=== PATIENT | male | born 1950 | race Caucasian/White ===

== ENCOUNTER 2020-01-21 09:01 | Emergency (ER) | payer MEDICARE ==
[2020-01-21 09:06] VITALS: Wt 68.2 kg
[2020-01-21 09:30] LABS: CALC OSMOLALITY 284 mosm/kg (275-300); CALCIUM 9.3 mg/dL (8.5-10.1); CARBON DIOXIDE 25.2 mmol/L (21.0-32.0); CHLORIDE - SERUM 103 mmol/L (98-107); CREATININE - SERUM 1.2 mg/dL (0.6-1.3); GLUCOSE 218 mg/dL (74-106); SODIUM 139 mmol/L (136-145); UREA NITROGEN 12 mg/dL (7-18); eGFR NON AFRICAN AMERICAN 64 mL/min (90-120)
[2020-01-21 09:38] LABS: BASOPHILS 0.5 % (0-2); EOSINOPHILS 0.5 % (0-7); HEMOGLOBIN 12.1 g/dL (13.5-17.5); IMMATURE GRANULOCYTES 0.1 % (0-5); LYMPHOCYTES 15.2 % (15-50); MCH 23.1 pg (26.0-34.0); MCHC 31.8 g/dL (31.0-37.0); MCV 72.5 fL (80.0-100.0); MEAN PLATELET VOLUME 9.2 fL (7.4-10.4); MONOCYTES 4.3 % (2-11); NEUTROPHILS 79.4 % (40-80); PLATELET COUNT 366 10x3/uL (130-400); RBC 5.24 10x6/uL (4.20-6.10); WBC 8.4 10x3/uL (4.8-10.8)
[2020-01-21 09:39] LABS: ALKALINE PHOSPHATASE 76 U/L (30-120); ALT (SGPT) 24 U/L (10-68); AMYLASE - SERUM 65 U/L (25-115); BILIRUBIN - TOTAL 0.35 mg/dL (0.2-1.3); LIPASE 187 U/L (73-393); PROTEIN - SERUM 7.8 g/dL (6.4-8.2); TROPONIN-I < 0.017 ng/mL (0.000-0.060)
[2020-01-21 09:55] LABS: BACTERIA MANY /hpf (NEGATIVE); BILIRUBIN NEGATIVE (NEGATIVE); EPITHELIAL CELLS OCC /hpf (0-5); GLUCOSE NEGATIVE (NEGATIVE); KETONE SMALL mg/dL (NEGATIVE); NITRITE NEGATIVE (NEGATIVE); RED CELLS - URINE 0-5 /hpf (0-5); SPECIFIC GRAVITY 1.005 (1.005-1.020); UROBILINOGEN NORMAL (NORMAL); WHITE CELLS - URINE 0-5 /hpf (NEGATIVE)
[2020-01-21] MEDS ORDERED: XANAX0.5 MG PO (10:53)
[2020-01-21] MEDS ORDERED: TRULICITY1.5 MG/0.5 SC (10:56)
[2020-01-21] MEDS ORDERED: ZOFRAN ODT4 MG/UDTAB PO (12:50)
[2020-01-21] MEDS ORDERED: CARAFATE1 G/10 ML PO (12:50)
[2020-01-21 12:56] VITALS: BP 156/87
[2020-01-22 13:40] VITALS: Wt 68.2 kg
== END 2020-01-21 13:00 | disposition home or self-care (01) ==
LOC: D.ER 09:01
PROVIDERS: Family Medicine
DX: R11.10 Vomiting, unspecified (principal); K59.00 Constipation, unspecified; E11.9 Type 2 diabetes mellitus without complications; Z79.84 Long term (current) use of oral hypoglycemic drugs; R10.9 Unspecified abdominal pain

== ENCOUNTER 2020-01-21 15:00 | Inpatient (IN) | payer MEDICARE ==
[~2020-01-21] VITALS: Ht 172.7 cm; Wt 69.7 kg
[~2020-01-21 15:00] MED LIST: CARAFATE1 G/10 ML PO; TRULICITY1.5 MG/0.5 SC; XANAX0.5 MG PO; ZOFRAN ODT4 MG/UDTAB PO
[2020-01-21 15:33] LABS: BASOPHILS 0.2 % (0-2); EOSINOPHILS 0.3 % (0-7); HEMATOCRIT 37.3 % (42.0-54.0); HEMOGLOBIN 11.8 g/dL (13.5-17.5); IMMATURE GRANULOCYTES 0.3 % (0-5); MCH 22.9 pg (26.0-34.0); MCHC 31.6 g/dL (31.0-37.0); MCV 72.4 fL (80.0-100.0); MONOCYTES 8.8 % (2-11); NEUTROPHILS 76.4 % (40-80); PLATELET COUNT 377 10x3/uL (130-400); RBC 5.15 10x6/uL (4.20-6.10)
[2020-01-21 15:43] LABS: WBC 15.5 10x3/uL (4.8-10.8)
[2020-01-21 15:45] LABS: CALC OSMOLALITY 276 mosm/kg (275-300); CALCIUM 8.6 mg/dL (8.5-10.1); CARBON DIOXIDE 25.6 mmol/L (21.0-32.0); CHLORIDE - SERUM 104 mmol/L (98-107); GLUCOSE 117 mg/dL (74-106); SODIUM 138 mmol/L (136-145); UREA NITROGEN 12 mg/dL (7-18); eGFR NON AFRICAN AMERICAN 79 mL/min (90-120)
[2020-01-21 15:51] LABS: ALBUMIN 3.7 g/dL (3.4-5.0); ALKALINE PHOSPHATASE 69 U/L (30-120); ALT (SGPT) 24 U/L (10-68); AMYLASE - SERUM 61 U/L (25-115); BILIRUBIN - TOTAL 0.33 mg/dL (0.2-1.3); MAGNESIUM - SERUM 1.9 mg/dL (1.8-2.4); PROTEIN - SERUM 7.4 g/dL (6.4-8.2)
[2020-01-21 16:53] VITALS: BP 145/84
[2020-01-21 18:24] VITALS: BP 168/84; BMI 22.8
[2020-01-21 20:00] VITALS: BP 151/82
--- NOTE | 2020-01-21 23:21 | NUR ---
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
--- NOTE | 2020-01-22 03:49 | NUR ---
I have reviewed this patient and I concur with the Shift Assessment completed by the Licensed Practical Nurse today this shift.
[2020-01-22 04:00] VITALS: BP 169/89
[2020-01-22 05:23] LABS: BASOPHILS 0.3 % (0-2); EOSINOPHILS 1.9 % (0-7); HEMATOCRIT 35.8 % (42.0-54.0); HEMOGLOBIN 11.2 g/dL (13.5-17.5); IMMATURE GRANULOCYTES 0.1 % (0-5); LYMPHOCYTES 29.8 % (15-50); MCH 22.8 pg (26.0-34.0); MCHC 31.3 g/dL (31.0-37.0); MCV 72.9 fL (80.0-100.0); MEAN PLATELET VOLUME 9.7 fL (7.4-10.4); MONOCYTES 8.6 % (2-11); NEUTROPHILS 59.3 % (40-80); PLATELET COUNT 385 10x3/uL (130-400); RBC 4.91 10x6/uL (4.20-6.10); RDW 18.1 % (11.5-14.5)
[2020-01-22 05:31] LABS: WBC 8.6 10x3/uL (4.8-10.8)
[2020-01-22 05:50] LABS: ALBUMIN 3.5 g/dL (3.4-5.0); ALKALINE PHOSPHATASE 61 U/L (30-120); ALT (SGPT) 22 U/L (10-68); AMYLASE - SERUM 55 U/L (25-115); BILIRUBIN - TOTAL 0.38 mg/dL (0.2-1.3); C-REACTIVE PROTEIN 0.3 mg/dL (0.0-0.9); CALC OSMOLALITY 272 mosm/kg (275-300); CALCIUM 8.2 mg/dL (8.5-10.1); CARBON DIOXIDE 26.4 mmol/L (21.0-32.0); CHLORIDE - SERUM 103 mmol/L (98-107); GLUCOSE 106 mg/dL (74-106); POTASSIUM - SERUM 3.7 mmol/L (3.5-5.1); PROTEIN - SERUM 6.8 g/dL (6.4-8.2); SODIUM 137 mmol/L (136-145); UREA NITROGEN 11 mg/dL (7-18); eGFR NON AFRICAN AMERICAN 79 mL/min (90-120)
[2020-01-22 05:54] LABS: LIPASE 111 U/L (73-393)
--- NOTE | 2020-01-22 07:35 | NUR ---
PT RESTING IN BED WITH LEGS FOLDED UP ONTO STOMACH. RESTLESS WITH ANXIETY. PT REPORTS PAIN 10/10 AT THIS TIME. BECOMES EASILY AGITATED WITH OTHERS, THEN APOLOGIZES FOR ACTIONS AND THINGS SAID. IV TO RIGHT FOREARM WITH NS @ 75 ML/HR INFUSING VIA PUMP. SITE WITHOUT REDNESS OR EDEMA. NO FURTHER NEEDS VOICED AT THIS TIME. CL WITHIN REACH. ENCOURAGED TO CALL WITH NEEDS. CONTINUE POC
[2020-01-22 09:10] VITALS: BP 129/99
--- NOTE | 2020-01-22 10:11 | NUR ---
URINE OBTAINED AND TAKEN TO LAB PER MD ORDERS
[2020-01-22 10:41] LABS: UDS - AMPHET NEGATIVE QUAL (NEGATIVE); UDS - BARB NEGATIVE QUAL (NEGATIVE); UDS - BENZO POSITIVE QUAL (NEGATIVE); UDS - COCAINE NEGATIVE QUAL (NEGATIVE); UDS - OPIATE POSITIVE QUAL (NEGATIVE); UDS - PCP NEGATIVE QUAL (NEGATIVE); UDS - THC POSITIVE QUAL (NEGATIVE)
[2020-01-22 11:30] LABS: BILIRUBIN NEGATIVE (NEGATIVE); GLUCOSE NEGATIVE (NEGATIVE); KETONE NEGATIVE (NEGATIVE); NITRITE POSITIVE (NEGATIVE); UROBILINOGEN NORMAL (NORMAL)
[2020-01-22 11:31] LABS: BACTERIA MANY /hpf (NEGATIVE); EPITHELIAL CELLS OCC /hpf (0-5); RED CELLS - URINE OCC /hpf (0-5)
[2020-01-22 12:40] VITALS: BP 175/90
[2020-01-22 13:40] VITALS: Ht 172.7 cm; Wt 69.7 kg
--- NOTE | 2020-01-22 18:09 | NUR ---
PT MORE PLEASANT, REPORTS PAIN RELIEF WITH ADMINISTREATION OF PAIN MEDICATIONS. HE IS LAUGHING AND TALKING WITH STAFF, NO ANXIETY/AGITATION EXHIBITED AT THIS TIME. HE VOICES THAT HE IS FEELING BETTER AFTER SPEAKING WITH MD REGARDING DX AND TREATMENT OPTIONS. DENIES FURTHER NEEDS AT THIS TIME. CL WITHIN REACH. ENCOURAGED TO CALL WITH NEEDS.
--- NOTE | 2020-01-22 18:17 | NUR ---
PT RESTING QUIETLY IN BED. NO ACUTE DISTRESS NOTED. DENIES FURTHER NEEDS AT THIS TIME. CL WITHIN REACH. ENCOURAGED TO CALL WITH NEEDS.
[2020-01-22 20:00] VITALS: BP 166/94
[2020-01-23] VITALS: BP 170/85
[2020-01-23 04:00] VITALS: BP 143/73
[2020-01-23 06:59] LABS: ANION GAP 11.8 mmol/L (8-16); CALCIUM 8.7 mg/dL (8.5-10.1); CARBON DIOXIDE 27.7 mmol/L (21.0-32.0); CREATININE - SERUM 1.1 mg/dL (0.6-1.3); POTASSIUM - SERUM 3.5 mmol/L (3.5-5.1)
[2020-01-23 07:04] LABS: BASOPHILS 0.5 % (0-2); EOSINOPHILS 1.4 % (0-7); HEMATOCRIT 38.2 % (42.0-54.0); HEMOGLOBIN 11.8 g/dL (13.5-17.5); IMMATURE GRANULOCYTES 0.1 % (0-5); LYMPHOCYTES 33.2 % (15-50); MCH 22.3 pg (26.0-34.0); MCHC 30.9 g/dL (31.0-37.0); MCV 72.2 fL (80.0-100.0); MEAN PLATELET VOLUME 9.4 fL (7.4-10.4); MONOCYTES 9.4 % (2-11); NEUTROPHILS 55.4 % (40-80); PLATELET COUNT 390 10x3/uL (130-400); RBC 5.29 10x6/uL (4.20-6.10); RDW 17.8 % (11.5-14.5); WBC 8.4 10x3/uL (4.8-10.8)
--- NOTE | 2020-01-23 07:28 | NUR ---
I have reviewed this patient and I concur with the Shift Assessment completed by the Licensed Practical Nurse today this shift.
--- NOTE | 2020-01-23 08:00 | NUR ---
TOLD PATIENT HIS POTASSIUM WAS 3.5. WHICH IS GOOD ENOUGH BUT I CAN STILL TREAT WITH THE ELECTROLYTE PROTOCOL. PATIENT VOICED UNDERSTANDING. CL IN REACH. WCTM
--- NOTE | 2020-01-23 08:15 | NUR ---
PATIENT ON SITE NURSE LIGHT QUESTIONING THAT DO THE "DOCTORS REALLY WANT ME TO TAKE THAT?" I ANSWERED WELL IT WOULD BE UP TO HIM. I EXPLAINED TO HIM WHAT POTASSIUM DOES FOR HIS BODY AND THAT I LIKE TO TREAT BEFORE IT GETS WORSE. THAT I COULD PUT IT IN LIQUID FORM SINCE HE STATED THAT HE DIDN'T WANT TO TAKE ANY PILLS. PATIENT STATED THAT WOULD BE FINE. I ASKED WHAT KIND OF JUICE HE LIKED SO I COULD MIX IT. HE ANSWERED APPLEJUICE. CL IN REACH. QUESTIONS ANSWERED. WCTM
--- NOTE | 2020-01-23 09:20 | NUR ---
PATIENT SENIOR SECURITY ANALYST LIGHT ASKING IF IT WAS TIME FOR HIS REGLAN. I STATED I HAVE YOUR MORNING MEDS IN MY POCKET AND THAT HE WAS NEXT ON MY LIST.
--- NOTE | 2020-01-23 09:27 | NUR ---
MEDS GIVEN PER EMAR. PATIENT STATED THAT HE DIDN'T WANT TO TAKE ANY PILLS. I VOICED UNDERSTANDING WHILE EXPLAINING TO HIM THE CARAFATE WOULD HELP COAT HIS STOMACH. ALSO STATED THAT HE HAS ALREADY VOMITED TODAY. I ASKED IF HE WAS STILL NAUSEOUS AND HE REPLIED YES. I LEFT TO GO GET ZOFRAN TO TREAT PER EMAR. CL IN REACH WCTM.
--- NOTE | 2020-01-23 09:55 | NUR ---
ASKED PATIENT IF NAUSEA WAS BETTER. HE STATED IT WAS. ANSWERED CALL LIGHT. STATED THAT HE PRESSED IT ON ACCIDENT. CL IN REACH. TM
[2020-01-23 11:05] VITALS: BP 161/97
--- NOTE | 2020-01-23 12:54 | NUR ---
Nutrition follow-up: Pts diet advanced to full liquids; still some nausea, vomiting Delayed gastric emptying and started on reglan Labs reviewed Wt: 153# RDN following.
[2020-01-23 15:07] VITALS: BP 171/87
[2020-01-23 18:58] VITALS: BP 153/83
[2020-01-23 20:00] VITALS: BP 132/56
--- NOTE | 2020-01-23 20:00 | NUR ---
PATIENT RESTING IN BED WATCHING TV. NO S/S OF ACUTE DISTRESS. PATIENT REQUESTED THAT HE HAVE HIS ATIVAN WITH HIS NIGHTIME MEDICINE. PATIENT HAS A RIGHT FOREARM, NORMAL SALINE @ 125 ML/HR. IV IS PATENT WITHOUT REDNESS, SWELLING, OR TENDERNESS. PATIENT IS UP ADLIB TO THE BATHROOM. PATIENT REPORTS THAT HIS NAUSEA HAS BEEN BETTER TODAY. CALL LIGHT WITHIN REACH. WILL CONTINUE TO MONITOR.
[2020-01-24] VITALS: BP 151/67
--- NOTE | 2020-01-24 03:00 | NUR ---
I have reviewed this patient and I concur with the Shift Assessment completed by the Licensed Practical Nurse today this shift.
[2020-01-24 04:00] VITALS: BP 153/80
[2020-01-24 06:11] LABS: BASOPHILS 0.5 % (0-2); EOSINOPHILS 2.4 % (0-7); HEMATOCRIT 35.9 % (42.0-54.0); HEMOGLOBIN 11.1 g/dL (13.5-17.5); LYMPHOCYTES 32.3 % (15-50); MCH 22.5 pg (26.0-34.0); MCHC 30.9 g/dL (31.0-37.0); MCV 72.7 fL (80.0-100.0); MEAN PLATELET VOLUME 9.6 fL (7.4-10.4); MONOCYTES 12.5 % (2-11); NEUTROPHILS 52.3 % (40-80); PLATELET COUNT 345 10x3/uL (130-400); RBC 4.94 10x6/uL (4.20-6.10); RDW 17.6 % (11.5-14.5); WBC 7.7 10x3/uL (4.8-10.8)
[2020-01-24 06:31] LABS: ALBUMIN 3.3 g/dL (3.4-5.0); ANION GAP 8.5 mmol/L (8-16); BILIRUBIN - TOTAL 0.34 mg/dL (0.2-1.3); CALCIUM 8.2 mg/dL (8.5-10.1); CARBON DIOXIDE 28.7 mmol/L (21.0-32.0); CREATININE - SERUM 1.1 mg/dL (0.6-1.3); POTASSIUM - SERUM 3.2 mmol/L (3.5-5.1); PROTEIN - SERUM 6.5 g/dL (6.4-8.2)
--- NOTE | 2020-01-24 09:38 | NUR ---
REFUSES TO TAKE PO OR IV POTASSIUM UNTIL HE SPEAKS WITH .
[2020-01-24 09:41] VITALS: BP 155/76
--- NOTE | 2020-01-24 10:00 | NUR ---
ASSESSMENT PER FLOW SHEET. PATIENT IS WITHOUT DISTRESS.CALL LIGHT IN REACH
[2020-01-24 13:45] VITALS: BP 155/79
--- NOTE | 2020-01-24 15:57 | NUR ---
DENIES NEEDS. DID AGREE TO TAKE POTASSIUN PER MAR.HE HAS REMAINED WITHOUT NAUSEA OR VOMITING.
[2020-01-24 16:00] VITALS: BP 143/93
[2020-01-24 20:00] VITALS: BP 165/88
--- NOTE | 2020-01-24 20:00 | NUR ---
PATIENT RESTING IN BED WATCHING TV. NO S/S OF ACUTE DISTRESS. NO C/O AT THIS TIME. PATIENT HAS RIGHT FOREARM, NORMAL SALINE @ 125 ML/HR. IV IS PATENT WITHOUT REDNESS, SWELLING, OR TENDERNESS. PATIENT REPORTS THAT HE "KEPT A WHOLE MEAL DOWN WITHOUT EVEN A LITTLE ACID REFLUX." PATIENT STATES THAT HE HAD A WONDERFUL DAY WITH NO N&V. PATIENT UP ADLIB TO THE BATHROOM. CALL LIGHT WITHIN REACH. WILL CONTINUE TO MONITOR.
[2020-01-25] VITALS: BP 176/94
--- NOTE | 2020-01-25 03:53 | NUR ---
I have reviewed this patient and I concur with the Shift Assessment completed by the Licensed Practical Nurse today this shift.
[2020-01-25 04:00] VITALS: BP 130/71
[2020-01-25 05:26] LABS: BASOPHILS 0.7 % (0-2); EOSINOPHILS 11.3 % (0-7); HEMATOCRIT 38.5 % (42.0-54.0); HEMOGLOBIN 12.1 g/dL (13.5-17.5); IMMATURE GRANULOCYTES 2.6 % (0-5); LYMPHOCYTES 35.7 % (15-50); MCHC 31.4 g/dL (31.0-37.0); MCV 73.3 fL (80.0-100.0); MEAN PLATELET VOLUME 9.3 fL (7.4-10.4); NEUTROPHILS 39.7 % (40-80); PLATELET COUNT 374 10x3/uL (130-400); RBC 5.25 10x6/uL (4.20-6.10); RDW 17.7 % (11.5-14.5)
[2020-01-25 05:41] LABS: WBC 9.8 10x3/uL (4.8-10.8)
[2020-01-25 05:53] LABS: % SATURATION 17 % (15-55); IRON 65 ug/dl (35-150); TOTAL IRON BIND CAPACITY 362 ug/dl (260-445); UNSAT IRON BIND CAPACITY 297 ug/dl (150-375)
[2020-01-25 06:12] LABS: ALBUMIN 3.8 g/dL (3.4-5.0); ANION GAP 10.1 mmol/L (8-16); BILIRUBIN - TOTAL 0.39 mg/dL (0.2-1.3); CALCIUM 8.6 mg/dL (8.5-10.1); CARBON DIOXIDE 29.5 mmol/L (21.0-32.0); CREATININE - SERUM 1.1 mg/dL (0.6-1.3); POTASSIUM - SERUM 3.6 mmol/L (3.5-5.1); PROTEIN - SERUM 7.4 g/dL (6.4-8.2)
--- NOTE | 2020-01-25 08:00 | NUR ---
ASSESSMENT PER FLOW SHEET. PATIENT IS WITHOUT DISTRESS.CALL LIGHT IN REACH. MONITOR FOR NEEDS
[2020-01-25 08:45] VITALS: BP 168/80
[2020-01-25] MEDS ORDERED: REGLAN10 MG PO (10:42)
[2020-01-25] MEDS ORDERED: LINZESS145 MCG PO (10:42)
[2020-01-25] MEDS ORDERED: NEURONTIN 300300 MG PO (10:42)
[2020-01-25] MEDS ORDERED: LEVAQUIN750 MG PO (11:05)
--- NOTE | 2020-01-25 12:38 | NUR ---
DISCHARGE INSTRUCTIONS,STATES UNDERSTANDING. IV DCD WITH CATH TIP INTACT. LEFT UNIT VIA WHEELCHAIR
--- NOTE | 2020-01-25 18:22 | MORECARE ---
CASE MANAGEMENT DISCHARGE SUMMARY PATIENT: NATHAN JAMESON UNIT: [id number] ADM DATE: 01/22/20 AGE: 69 : 50 SEX: M ROOM/BED: D.2205 AUTHOR: DANILO,DOC PHYSICIAN: REFERRING PHYSICIAN: JULY RESENDEZ MD DATE OF SERVICE: 01/25/20 Discharge Plan Patient Name: NATHAN JAMESON Facility: [facility]:[place] : 1950 Planned Disposition: Home Anticipated Discharge Date: Discharge Date: 01/25/2020 Expected LOS: Initial Reviewer: [email or web address] Initial Review Date: 01/25/2020 Generated: 01/25/20 7:22 pm Comments DCP- Discharge Planning Updated by [email or web address]: Letitia Ho on 01/25/20 5:[address] Patient Name: NATHAN JAMESON Admission Status: ER Accout number: [id number] Admission Date: 01-22-2020 : 1950 Admission Diagnosis:GASTROPARESIS Attending: MAL, Current LOS: 3 Anticipated DC Date: Planned Disposition: Home Primary Insurance: MEDICARE A & B Discharge Planning Comments: CM met with patient to complete initial dc planning assessment. CM educated patient on the CM role and verbal consent given by patient to complete assessment. Patient lives at home alone. Patient is independent. At discharge patient plans to return home and feels this is a safe discharge. CM discussed availability of home health, rehab services, and medical equipment. Patient will have family to transport home. Patient denied known discharge needs at this time. CM will continue to follow and will assist as needed with dc plans/needs. Geophysical Computer: Letitia Ho DCPIA - Discharge Planning Initial Assessment Updated by [email or web address]: Letitia Ho on 01/25/20 6:18 pm * Is the patient Alert and Oriented? Yes * How many steps to enter\exit or inside your home? 2-3 * PCP ?MAL * Pharmacy [facility] * Preadmission Environment Home Alone * ADLs Independent * Equipment None * List name and contact numbers for known caregivers / representatives who currently or will assist patient after discharge: [facility] - [phone] VARUN PERALES [facility] - [phone] * Verbal permission to speak to the caregivers and representatives has been obtained from the patient. Yes * Community resources currently utilized None * Additional services required to return to the preadmission environment? No * Can the patient safely return to the preadmission environment? Yes * Has this patient been hospitalized within the prior 30 days at any hospital? No Patient Name: NATHAN JAMESON Page [phone] at 1822 All edits/amendments must be made on the electronic document DICTATION DATE: 01/25/201821 FLOOR PERSON: IAN 01/25/201821 RPT#: [id number] DC DATE:01/25/20 STATUS: DIS IN [facility] [address] [place] [address] END OF REPORT
== END 2020-01-25 12:39 | disposition home or self-care (01) | DRG 392 ==
LOC: D.ER 15:00 → OBSVTIME 16:27 → D.MS 16:27
PROVIDERS: Family Medicine; ADMIT Family Medicine; ATTEND Family Medicine
DX: K52.9 Noninfective gastroenteritis and colitis, unspecified (principal); K31.84 Gastroparesis; E86.0 Dehydration; R11.2 Nausea with vomiting, unspecified; D72.829 Elevated white blood cell count, unspecified; K44.9 Diaphragmatic hernia without obstruction or gangrene; E11.65 Type 2 diabetes mellitus with hyperglycemia

== ENCOUNTER 2020-02-08 03:29 | Inpatient (IN) | payer MEDICARE ==
[~2020-02-08] VITALS: Ht 172.7 cm; Wt 68.2 kg
[~2020-02-08 03:29] MED LIST changes: +LEVAQUIN750 MG PO; +LINZESS145 MCG PO; +NEURONTIN 300300 MG PO; +REGLAN10 MG PO
[2020-02-08 03:57] LABS: BASOPHILS 0.5 % (0-2); EOSINOPHILS 0.5 % (0-7); HEMATOCRIT 36.7 % (42.0-54.0); HEMOGLOBIN 11.9 g/dL (13.5-17.5); IMMATURE GRANULOCYTES 0.3 % (0-5); LYMPHOCYTES 19.7 % (15-50); MCH 23.2 pg (26.0-34.0); MCHC 32.4 g/dL (31.0-37.0); MCV 71.7 fL (80.0-100.0); MEAN PLATELET VOLUME 8.9 fL (7.4-10.4); MONOCYTES 6.7 % (2-11); NEUTROPHILS 72.3 % (40-80); RBC 5.12 10x6/uL (4.20-6.10); RDW 17.6 % (11.5-14.5); WBC 10.8 10x3/uL (4.8-10.8)
[2020-02-08 03:58] LABS: PLATELET COUNT 469 10x3/uL (130-400)
[2020-02-08 04:01] LABS: ANION GAP 14.2 mmol/L (8-16); CALCIUM 8.9 mg/dL (8.5-10.1); CARBON DIOXIDE 24.8 mmol/L (21.0-32.0); CREATININE - SERUM 1.3 mg/dL (0.6-1.3)
[2020-02-08 04:07] LABS: ALBUMIN 4.1 g/dL (3.4-5.0); BILIRUBIN - TOTAL 0.49 mg/dL (0.2-1.3); PROTEIN - SERUM 7.7 g/dL (6.4-8.2)
[2020-02-08 04:20] LABS: BILIRUBIN NEGATIVE (NEGATIVE); GLUCOSE NEGATIVE (NEGATIVE); KETONE MODERATE mg/dL (NEGATIVE); NITRITE NEGATIVE (NEGATIVE); SPECIFIC GRAVITY 1.015 (1.005-1.020); UROBILINOGEN NORMAL (NORMAL)
[2020-02-08 04:30] VITALS: BP 159/85
--- NOTE | 2020-02-08 04:45 | NUR ---
PT HOWLING, STANDING AT END OF BED YELLING AT NURSE. STATES THAT HE IS IN PAIN STILL. EDP NOTIFIED, SEE EMAR.
[2020-02-08 05:00] VITALS: BP 153/75
[2020-02-08 08:51] VITALS: BP 124/61
[2020-02-08 10:45] VITALS: Ht 172.7 cm; Wt 68.2 kg
--- NOTE | 2020-02-08 10:45 | NUR ---
FROM THE ER THIS MORNING. HE IS C/O ABD PAIN. THE CALL LIGHT IS WITHIN REACH.
[2020-02-08 14:02] VITALS: BP 154/82
[2020-02-08 17:09] VITALS: BP 147/64
[2020-02-08 20:00] VITALS: BP 134/67
[2020-02-09 04:00] VITALS: BP 123/64
[2020-02-09 05:37] LABS: HEMATOCRIT 32.9 % (42.0-54.0); HEMOGLOBIN 10.3 g/dL (13.5-17.5); LYMPHOCYTES 41.9 % (15-50); MCHC 31.3 g/dL (31.0-37.0); MCV 73.6 fL (80.0-100.0); MEAN PLATELET VOLUME 8.3 fL (7.4-10.4); NEUTROPHILS 48.2 % (40-80); PLATELET COUNT 456 10x3/uL (130-400); RBC 4.47 10x6/uL (4.20-6.10); RDW 17.7 % (11.5-14.5); WBC 7.9 10x3/uL (4.8-10.8)
[2020-02-09 06:03] LABS: ALKALINE PHOSPHATASE 66 U/L (30-120); BILIRUBIN - TOTAL 0.32 mg/dL (0.2-1.3); CALCIUM 7.5 mg/dL (8.5-10.1); CARBON DIOXIDE 26.5 mmol/L (21.0-32.0); CHLORIDE - SERUM 104 mmol/L (98-107); POTASSIUM - SERUM 3.7 mmol/L (3.5-5.1); PROTEIN - SERUM 5.9 g/dL (6.4-8.2); SODIUM 138 mmol/L (136-145); UREA NITROGEN 15 mg/dL (7-18); eGFR NON AFRICAN AMERICAN 79 mL/min (90-120)
[2020-02-09 06:04] LABS: ALT (SGPT) 14 U/L (10-68); CALC OSMOLALITY 276 mosm/kg (275-300); GLUCOSE 93 mg/dL (74-106)
--- NOTE | 2020-02-09 08:29 | NUR ---
PT RESTING IN BED WITH EYES CLOSED, EASILY AROUSED TO SPEECH. IV LOCATED TO LEFT AC RUNNING NS @ 100, ZOPHRAN @ 4.7. NO S/S OF DISTRESS AT THIS TIME, DENIES NEEDS, WILL CONT TO MONITOR.
[2020-02-09 08:59] VITALS: BP 109/57
--- NOTE | 2020-02-09 11:58 | NUR ---
BS 193, REFUSED INSULIN STATES HE WOULD LIKE TO TALK TO ELADIO MORALES, NOTIFIED HER.
[2020-02-09 12:52] VITALS: BP 137/69
[2020-02-09] MEDS ORDERED: XANAX0.25 MG PO (13:34)
--- NOTE | 2020-02-09 14:45 | NUR ---
D/C PAPERS SIGNED, WAITING FOR RIDE. NO CONCERNS ABOUT DC.
== END 2020-02-09 15:00 | disposition home or self-care (01) | DRG 74 ==
LOC: D.ER 03:29 → D.MS 05:18
PROVIDERS: Emergency Medicine; ADMIT Family Medicine Adult Medicine; ATTEND Family Medicine Adult Medicine
DX: E11.43 Type 2 diabetes mellitus with diabetic autonomic (poly)neuropathy (principal); E87.1 Hypo-osmolality and hyponatremia; K31.84 Gastroparesis; R10.9 Unspecified abdominal pain; D50.9 Iron deficiency anemia, unspecified; I10 Essential (primary) hypertension; N40.0 Benign prostatic hyperplasia without lower urinary tract symptoms; E11.65 Type 2 diabetes mellitus with hyperglycemia; K57.90 Diverticulosis of intestine, part unspecified, without perforation or abscess without bleeding; K59.00 Constipation, unspecified; F12.90 Cannabis use, unspecified, uncomplicated; K46.9 Unspecified abdominal hernia without obstruction or gangrene; E86.0 Dehydration; R11.2 Nausea with vomiting, unspecified

== ENCOUNTER 2020-03-30 10:24 | Emergency (ER) | payer MEDICARE ==
[~2020-03-30] VITALS: Ht 172.7 cm; Wt 65.9 kg
[~2020-03-30 10:24] MED LIST changes: +XANAX0.25 MG PO
[2020-03-30 10:27] VITALS: Ht 172.7 cm; Wt 65.9 kg
[2020-03-30] MEDS ORDERED: OMEPRAZOLE20 M1 PO ×2 (10:31→13:53)
[2020-03-30 11:25] LABS: BASOPHILS 0.8 % (0-2); EOSINOPHILS 2.5 % (0-7); HEMATOCRIT 35.1 % (42.0-54.0); HEMOGLOBIN 10.9 g/dL (13.5-17.5); IMMATURE GRANULOCYTES 0.2 % (0-5); LYMPHOCYTES 23.3 % (15-50); MCH 22.4 pg (26.0-34.0); MCHC 31.1 g/dL (31.0-37.0); MCV 72.1 fL (80.0-100.0); MEAN PLATELET VOLUME 9.4 fL (7.4-10.4); MONOCYTES 8.7 % (2-11); NEUTROPHILS 64.5 % (40-80); PLATELET COUNT 404 10x3/uL (130-400); RBC 4.87 10x6/uL (4.20-6.10); WBC 8.5 10x3/uL (4.8-10.8)
[2020-03-30 11:38] LABS: ANION GAP 10.2 mmol/L (8-16); CALCIUM 8.6 mg/dL (8.5-10.1); CARBON DIOXIDE 28.2 mmol/L (21.0-32.0); CREATININE - SERUM 1.1 mg/dL (0.6-1.3); POTASSIUM - SERUM 4.4 mmol/L (3.5-5.1)
[2020-03-30 11:42] LABS: ALBUMIN 3.6 g/dL (3.4-5.0); BILIRUBIN - TOTAL 0.31 mg/dL (0.2-1.3); PROTEIN - SERUM 6.8 g/dL (6.4-8.2)
[2020-03-30 13:30] LABS: BILIRUBIN NEGATIVE (NEGATIVE); KETONE NEGATIVE (NEGATIVE); NITRITE NEGATIVE (NEGATIVE); UROBILINOGEN NORMAL (NORMAL)
[2020-03-30] MEDS ORDERED: HYDROCODON-ACE1 EAC7 PO (13:53)
[2020-03-30] MEDS ORDERED: ZOFRAN ODT4 MG/UDTAB PO (13:53)
[2020-03-30] MEDS ORDERED: CARAFATE1 G PO (13:53)
[2020-03-30 14:36] VITALS: BP 120/59
== END 2020-03-30 14:44 | disposition home or self-care (01) ==
LOC: D.ER 10:24
PROVIDERS: Emergency Medicine
DX: R10.9 Unspecified abdominal pain (principal); E11.9 Type 2 diabetes mellitus without complications

== ENCOUNTER 2020-09-27 13:35 | Inpatient (IN) | payer MEDICARE ==
[~2020-09-27] VITALS: Ht 172.7 cm; Wt 63.5 kg
[~2020-09-27 13:35] MED LIST changes: +CARAFATE1 G PO; +HYDROCODON-ACE1 EAC7 PO; +OMEPRAZOLE20 M1 PO
[2020-09-27] MEDS ORDERED: ED-SPAZ0.125 MG PO (13:52)
[2020-09-27 14:06] LABS: BASOPHILS 0.7 % (0-2); EOSINOPHILS 1.6 % (0-7); HEMATOCRIT 32.7 % (42.0-54.0); HEMOGLOBIN 10.1 g/dL (13.5-17.5); IMMATURE GRANULOCYTES 0.4 % (0-5); LYMPHOCYTE ABS# 2.14 10x3/uL (1.32-3.57); LYMPHOCYTES 19.5 % (15-50); MCH 21.8 pg (26.0-34.0); MCHC 30.9 g/dL (31.0-37.0); MCV 70.5 fL (80.0-100.0); MEAN PLATELET VOLUME 9.1 fL (7.4-10.4); MONOCYTES 7.9 % (2-11); NEUTROPHIL ABS# 7.65 10x3/uL (1.78-5.38); NEUTROPHILS 69.9 % (40-80); PLATELET COUNT 339 10x3/uL (130-400); RBC 4.64 10x6/uL (4.20-6.10)
[2020-09-27 14:07] VITALS: BP 126/68
[2020-09-27 14:15] LABS: CALC OSMOLALITY 260 mosm/kg (275-300); CALCIUM 8.2 mg/dL (8.5-10.1); CARBON DIOXIDE 27.5 mmol/L (21.0-32.0); CHLORIDE - SERUM 101 mmol/L (98-107); GLUCOSE 103 mg/dL (74-106); POTASSIUM - SERUM 4.6 mmol/L (3.5-5.1); SODIUM 131 mmol/L (136-145); UREA NITROGEN 8 mg/dL (7-18); eGFR NON AFRICAN AMERICAN 78 mL/min (90-120)
[2020-09-27 14:23] LABS: ALBUMIN 3.1 g/dL (3.4-5.0); ALKALINE PHOSPHATASE 97 U/L (30-120); ALT (SGPT) 16 U/L (10-68); AMYLASE - SERUM 59 U/L (25-115); BILIRUBIN - TOTAL 0.26 mg/dL (0.2-1.3); LIPASE 128 U/L (73-393); PROTEIN - SERUM 6.8 g/dL (6.4-8.2); TROPONIN-I < 0.017 ng/mL (0.000-0.060)
--- NOTE | 2020-09-27 15:32 | NUR ---
URINE COLLECTED AND SENT TO LAB
[2020-09-27 15:35] LABS: BILIRUBIN NEGATIVE (NEGATIVE); KETONE NEGATIVE (NEGATIVE); NITRITE NEGATIVE (NEGATIVE); UROBILINOGEN NORMAL mg/dL (< 2)
[2020-09-27 19:18] VITALS: BP 142/77; BMI 21.3
[2020-09-27 20:51] VITALS: BP 143/68
[2020-09-27 23:33] LABS: % SATURATION 8 % (15-55); IRON 23 ug/dl (35-150); TOTAL IRON BIND CAPACITY 267 ug/dl (260-445); UNSAT IRON BIND CAPACITY 244 ug/dl (150-375)
[2020-09-28 00:02] LABS: MAGNESIUM - SERUM 1.9 mg/dL (1.8-2.4)
[2020-09-28 00:47] VITALS: BP 138/76
[2020-09-28 05:05] LABS: UDS - AMPHET NEGATIVE QUAL (NEGATIVE); UDS - BARB NEGATIVE QUAL (NEGATIVE); UDS - BENZO POSITIVE QUAL (NEGATIVE); UDS - COCAINE NEGATIVE QUAL (NEGATIVE); UDS - OPIATE POSITIVE QUAL (NEGATIVE); UDS - PCP NEGATIVE QUAL (NEGATIVE); UDS - THC POSITIVE QUAL (NEGATIVE)
[2020-09-28 06:36] VITALS: BP 160/80
[2020-09-28 06:37] LABS: BASOPHILS 0.7 % (0-2); EOSINOPHILS 2.4 % (0-7); HEMATOCRIT 32.8 % (42.0-54.0); HEMOGLOBIN 9.9 g/dL (13.5-17.5); IMMATURE GRANULOCYTES 0.2 % (0-5); LYMPHOCYTE ABS# 2.84 10x3/uL (1.32-3.57); LYMPHOCYTES 29.1 % (15-50); MCH 21.4 pg (26.0-34.0); MCHC 30.2 g/dL (31.0-37.0); MCV 70.8 fL (80.0-100.0); MONOCYTES 8.8 % (2-11); NEUTROPHIL ABS# 5.74 10x3/uL (1.78-5.38); NEUTROPHILS 58.8 % (40-80); PLATELET COUNT 398 10x3/uL (130-400); RBC 4.63 10x6/uL (4.20-6.10); RDW 19.2 % (11.5-14.5); WBC 9.8 10x3/uL (4.8-10.8)
[2020-09-28 06:45] LABS: ALBUMIN 2.9 g/dL (3.4-5.0); ALKALINE PHOSPHATASE 98 U/L (30-120); ALT (SGPT) 15 U/L (10-68); BILIRUBIN - TOTAL 0.22 mg/dL (0.2-1.3); CALC OSMOLALITY 271 mosm/kg (275-300); CALCIUM 8.2 mg/dL (8.5-10.1); CARBON DIOXIDE 25.7 mmol/L (21.0-32.0); CHLORIDE - SERUM 104 mmol/L (98-107); CREATININE - SERUM 0.8 mg/dL (0.6-1.3); GLUCOSE 141 mg/dL (74-106); MAGNESIUM - SERUM 1.9 mg/dL (1.8-2.4); PROTEIN - SERUM 6.3 g/dL (6.4-8.2); SODIUM 136 mmol/L (136-145); UREA NITROGEN 6 mg/dL (7-18); eGFR NON AFRICAN AMERICAN > 90 mL/min (90-120)
[2020-09-28 06:53] LABS: POTASSIUM - SERUM 3.9 mmol/L (3.5-5.1)
[2020-09-28 08:34] VITALS: BP 124/67
[2020-09-28 11:49] VITALS: BP 129/67
[2020-09-28] MEDS ORDERED: ZOFRAN ODT4 MG/UDTAB PO (14:40)
[2020-09-28 15:55] VITALS: BP 128/64
[2020-09-28 20:00] VITALS: BP 135/72
[2020-09-29] VITALS: BP 154/72
[2020-09-29 04:00] VITALS: BP 118/72
--- NOTE | 2020-09-29 06:02 | NUR ---
PT SLEPT ON AND OFF THROUGHOUT THE SHIFT. PT COMPLAINED OF HIS STOMACH HAVING A "BURNING" SENSATION AND STATED THE CARAFATE HELPS OUT. PT BLOOD GLUCOSE WNL. RESTING IN BED AT THIS TIME.
[2020-09-29 06:36] LABS: BASOPHILS 0.6 % (0-2); EOSINOPHILS 3.4 % (0-7); HEMATOCRIT 32.1 % (42.0-54.0); HEMOGLOBIN 9.5 g/dL (13.5-17.5); IMMATURE GRANULOCYTES 0.3 % (0-5); LYMPHOCYTE ABS# 2.42 10x3/uL (1.32-3.57); LYMPHOCYTES 33.3 % (15-50); MCHC 29.6 g/dL (31.0-37.0); MEAN PLATELET VOLUME 9.2 fL (7.4-10.4); MONOCYTES 9.9 % (2-11); NEUTROPHIL ABS# 3.81 10x3/uL (1.78-5.38); NEUTROPHILS 52.5 % (40-80); PLATELET COUNT 404 10x3/uL (130-400); RBC 4.52 10x6/uL (4.20-6.10); WBC 7.3 10x3/uL (4.8-10.8)
[2020-09-29 06:38] LABS: ALBUMIN 2.8 g/dL (3.4-5.0); ALKALINE PHOSPHATASE 95 U/L (30-120); ALT (SGPT) 16 U/L (10-68); BILIRUBIN - TOTAL 0.18 mg/dL (0.2-1.3); CALC OSMOLALITY 274 mosm/kg (275-300); CALCIUM 8.1 mg/dL (8.5-10.1); CARBON DIOXIDE 28.9 mmol/L (21.0-32.0); CHLORIDE - SERUM 105 mmol/L (98-107); CREATININE - SERUM 0.8 mg/dL (0.6-1.3); GLUCOSE 104 mg/dL (74-106); POTASSIUM - SERUM 3.7 mmol/L (3.5-5.1); PROTEIN - SERUM 6.2 g/dL (6.4-8.2); SODIUM 139 mmol/L (136-145); eGFR NON AFRICAN AMERICAN > 90 mL/min (90-120)
[2020-09-29 06:40] LABS: UREA NITROGEN 3 mg/dL (7-18)
[2020-09-29 10:29] VITALS: Ht 172.7 cm; Wt 63.5 kg
[2020-09-29 10:39] VITALS: BP 140/80
[2020-09-29] MEDS ORDERED: LINZESS145 MCG PO (11:36)
--- NOTE | 2020-09-29 14:08 | MORECARE ---
CASE MANAGEMENT DISCHARGE SUMMARY PATIENT: NATHAN JAMESON UNIT: [id number] ADM DATE: 09/27/20 AGE: 70 : 50 SEX: M ROOM/BED: D.2210 AUTHOR: DANILODOC PHYSICIAN: REFERRING PHYSICIAN: JULY RESENDEZ MD DATE OF SERVICE: 09/29/20 Discharge Plan Patient Name: NATHAN JAMESON Facility: [facility]:[place] : 1950 Planned Disposition: Home or Self Care Anticipated Discharge Date: Discharge Date: Expected LOS: Initial Reviewer: [email or web address] Initial Review Date: 09/27/2020 Generated: 09/29/20 3:08 pm Comments DCP- Discharge Planning Updated by [email or web address]: Edda Kelly on 09/29/20 1:[address] Patient Name: NATHAN JAMESON Admission Status: ER Accout number: [id number] Admission Date: 09-27-2020 : 1950 Admission Diagnosis:TYPE 2 DIABETES W DIABETIC AUTONOMIC (POLY)NEUROPATHY Attending: MAL, Current LOS: 2 Anticipated DC Date: Planned Disposition: Home or Self Care Primary Insurance: MEDICARE A & B Discharge Planning Comments: CM met with patient to complete initial dc planning assessment. CM educated patient on the CM role and verbal consent given by patient to complete assessment. Patient lives at home where he is independent with his care. At discharge patient plans to return home and feels this is a safe discharge. CM discussed availability of home health, rehab services, and medical equipment. 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 Patient denied known discharge needs at this time. CM will continue to follow and will assist as needed with dc plans/needs Brand Recorder: Edda Kelly DCPIA - Discharge Planning Initial Assessment Updated by [email or web address]: Edda Kelly on 09/29/20 2:03 pm * Is the patient Alert and Oriented? Yes * How many steps to enter\exit or inside your home? * PCP MAL * Pharmacy [facility] [address] * Preadmission Environment Home Alone * ADLs Independent * Equipment None * List name and contact numbers for known caregivers / representatives who currently or will assist patient after discharge: DEJAH ( EX WAIFE) * Verbal permission to speak to the caregivers and representatives has been obtained from the patient. N/A * Community resources currently utilized None * Additional services required to return to the preadmission environment? No * Can the patient safely return to the preadmission environment? Yes * Has this patient been hospitalized within the prior 30 days at any hospital? No Patient Name: NATHAN JAMESON Page [phone] at 1408 All edits/amendments must be made on the electronic document DICTATION DATE: 09/29/201407 OPTICAL MECHANIC: IAN 09/29/201407 RPT#: [id number] DC DATE: STATUS: ADM IN [facility] [address] [place] [address] END OF REPORT
== END 2020-09-29 14:34 | disposition home or self-care (01) | DRG 74 ==
LOC: D.ER 13:35 → D.MS 15:18 → D.EDHOLD 15:18 → D.MS 15:20
PROVIDERS: Emergency Medicine; Family Medicine; ADMIT Family Medicine; ATTEND Family Medicine
DX: E11.43 Type 2 diabetes mellitus with diabetic autonomic (poly)neuropathy (principal); E87.1 Hypo-osmolality and hyponatremia; K31.84 Gastroparesis; D50.9 Iron deficiency anemia, unspecified; N40.0 Benign prostatic hyperplasia without lower urinary tract symptoms; F41.9 Anxiety disorder, unspecified; K59.00 Constipation, unspecified; Z87.891 Personal history of nicotine dependence

== ENCOUNTER 2020-10-09 12:09 | Emergency (ER) | payer MEDICARE ==
[~2020-10-09] VITALS: Ht 172.7 cm; Wt 65.9 kg
[~2020-10-09 12:09] MED LIST changes: +ED-SPAZ0.125 MG PO
[2020-10-09 12:18] VITALS: Ht 172.7 cm; Wt 65.9 kg
[2020-10-09 14:12] LABS: BASOPHILS 0.8 % (0-2); EOSINOPHILS 1.2 % (0-7); HEMATOCRIT 34.9 % (42.0-54.0); HEMOGLOBIN 11.2 g/dL (13.5-17.5); IMMATURE GRANULOCYTES 0.3 % (0-5); LYMPHOCYTE ABS# 2.65 10x3/uL (1.32-3.57); MCHC 32.1 g/dL (31.0-37.0); MCV 68.7 fL (80.0-100.0); MEAN PLATELET VOLUME 8.7 fL (7.4-10.4); MONOCYTES 8.1 % (2-11); NEUTROPHIL ABS# 6.85 10x3/uL (1.78-5.38); NEUTROPHILS 64.6 % (40-80); RBC 5.08 10x6/uL (4.20-6.10); RDW 18.6 % (11.5-14.5); WBC 10.6 10x3/uL (4.8-10.8)
[2020-10-09 14:15] LABS: CALC OSMOLALITY 271 mosm/kg (275-300); CALCIUM 9.1 mg/dL (8.5-10.1); CARBON DIOXIDE 29.8 mmol/L (21.0-32.0); CHLORIDE - SERUM 100 mmol/L (98-107); GLUCOSE 112 mg/dL (74-106); POTASSIUM - SERUM 4.4 mmol/L (3.5-5.1); SODIUM 136 mmol/L (136-145); UREA NITROGEN 9 mg/dL (7-18); eGFR NON AFRICAN AMERICAN 78 mL/min (90-120)
[2020-10-09 14:21] LABS: ALKALINE PHOSPHATASE 113 U/L (30-120); ALT (SGPT) 21 U/L (10-68); BILIRUBIN - TOTAL 0.31 mg/dL (0.2-1.3)
[2020-10-09 14:27] LABS: PLATELET COUNT 493 10x3/uL (130-400)
[2020-10-09 15:08] VITALS: BP 137/68
[2020-10-09] MEDS ORDERED: MIRALAX17 GM PO (15:10)
[2020-10-10] MEDS ORDERED: ZOFRAN ODT4 MG/UDTAB PO (09:48)
[2020-10-10] MEDS ORDERED: LEVSIN/ANASP0.125 MG PO (09:48)
== END 2020-10-09 15:46 | disposition home or self-care (01) ==
LOC: D.ER 12:09
PROVIDERS: Emergency Medicine
DX: K59.01 Slow transit constipation (principal); K31.84 Gastroparesis; R11.2 Nausea with vomiting, unspecified; K59.9 Functional intestinal disorder, unspecified; E11.9 Type 2 diabetes mellitus without complications; Z79.84 Long term (current) use of oral hypoglycemic drugs

== ENCOUNTER 2020-10-10 06:22 | Inpatient (IN) | payer MEDICARE ==
[~2020-10-10] VITALS: Ht 172.7 cm; Wt 63.5 kg
[~2020-10-10 06:22] MED LIST changes: +MIRALAX17 GM PO
[2020-10-10 07:00] LABS: BASOPHILS 1.2 % (0-2); EOSINOPHILS 2.6 % (0-7); HEMATOCRIT 31.5 % (42.0-54.0); HEMOGLOBIN 9.9 g/dL (13.5-17.5); IMMATURE GRANULOCYTES 0.2 % (0-5); LYMPHOCYTE ABS# 2.08 10x3/uL (1.32-3.57); LYMPHOCYTES 24.6 % (15-50); MCH 21.4 pg (26.0-34.0); MCHC 31.4 g/dL (31.0-37.0); MCV 68.2 fL (80.0-100.0); MEAN PLATELET VOLUME 8.6 fL (7.4-10.4); MONOCYTES 9.7 % (2-11); NEUTROPHIL ABS# 5.23 10x3/uL (1.78-5.38); NEUTROPHILS 61.7 % (40-80); PLATELET COUNT 420 10x3/uL (130-400); RBC 4.62 10x6/uL (4.20-6.10); RDW 18.7 % (11.5-14.5); WBC 8.5 10x3/uL (4.8-10.8)
[2020-10-10 07:18] LABS: CALC OSMOLALITY 269 mosm/kg (275-300); CALCIUM 8.4 mg/dL (8.5-10.1); CARBON DIOXIDE 27.7 mmol/L (21.0-32.0); CHLORIDE - SERUM 100 mmol/L (98-107); GLUCOSE 153 mg/dL (74-106); POTASSIUM - SERUM 4.1 mmol/L (3.5-5.1); SODIUM 134 mmol/L (136-145); UREA NITROGEN 9 mg/dL (7-18); eGFR NON AFRICAN AMERICAN 78 mL/min (90-120)
[2020-10-10 07:23] LABS: ALBUMIN 3.3 g/dL (3.4-5.0); ALKALINE PHOSPHATASE 98 U/L (30-120); ALT (SGPT) 21 U/L (10-68); AMYLASE - SERUM 57 U/L (25-115); BILIRUBIN - TOTAL 0.29 mg/dL (0.2-1.3); LIPASE 131 U/L (73-393); PROTEIN - SERUM 6.9 g/dL (6.4-8.2); TROPONIN-I < 0.017 ng/mL (0.000-0.060)
--- NOTE | 2020-10-10 08:42 | NUR ---
URINE SAMPLE SENT TO LAB PER PROTOCOL.
[2020-10-10 09:00] LABS: BILIRUBIN NEGATIVE (NEGATIVE); KETONE NEGATIVE (NEGATIVE); NITRITE NEGATIVE (NEGATIVE); UROBILINOGEN NORMAL mg/dL (< 2)
[2020-10-10 09:09] LABS: UDS - AMPHET NEGATIVE QUAL (NEGATIVE); UDS - BARB NEGATIVE QUAL (NEGATIVE); UDS - BENZO POSITIVE QUAL (NEGATIVE); UDS - COCAINE NEGATIVE QUAL (NEGATIVE); UDS - OPIATE NEGATIVE QUAL (NEGATIVE); UDS - PCP NEGATIVE QUAL (NEGATIVE); UDS - THC POSITIVE QUAL (NEGATIVE)
[2020-10-10] MEDS ORDERED: ZOFRAN ODT4 MG/UDTAB PO (09:48)
[2020-10-10] MEDS ORDERED: LEVSIN/ANASP0.125 MG PO (09:48)
--- NOTE | 2020-10-10 10:05 | NUR ---
AWAITING DIONNE CR FROM PHARMACY, PATIENT GIVEN WARM BLANKETS X 2. DENIES FURTHER NEEDS. NAD.
--- NOTE | 2020-10-10 11:02 | NUR ---
DIONNE CR RECEIVED FROM PHARMACY
--- NOTE | 2020-10-10 11:15 | NUR ---
RECEIVED TO ROOM 2212 VIA WC FROM ER. A/O X3. C/O ABDOMINAL PAIN LEVEL 6 AND BEING COLD. WARM BLANKETS APPLIED. SKIN INTACT WITHOUT REDNESS. DENIES NEEDS.
[2020-10-10 12:14] VITALS: BP 170/95; BMI 21.3
--- NOTE | 2020-10-10 13:05 | NUR ---
REQUESTED AND GIVEN 2MG MORPHINE SLOW IVP FOR C/O ABDOMINAL PAIN LEVEL 7. WILL MONITOR. ABLE TO EAT POPSICLE AND KEEP IT DOWN.
--- NOTE | 2020-10-10 17:33 | NUR ---
CL DIET SERVED IN ROOM. UNABLE TO EAT AT THIS TIME. REPORTS PAIN EASED SLIGHTLY WITH COMMUNITY LIAISON. WILL CONTINUE TO MONITOR.
[2020-10-10 20:00] VITALS: BP 161/74
[2020-10-11 04:00] VITALS: BP 169/91
[2020-10-11 05:31] LABS: BASOPHILS 0.7 % (0-2); EOSINOPHILS 0.8 % (0-7); HEMATOCRIT 34.9 % (42.0-54.0); HEMOGLOBIN 10.7 g/dL (13.5-17.5); IMMATURE GRANULOCYTES 0.3 % (0-5); LYMPHOCYTE ABS# 3.04 10x3/uL (1.32-3.57); LYMPHOCYTES 29.7 % (15-50); MCH 20.9 pg (26.0-34.0); MCHC 30.7 g/dL (31.0-37.0); MCV 68.3 fL (80.0-100.0); MONOCYTES 7.5 % (2-11); NEUTROPHIL ABS# 6.26 10x3/uL (1.78-5.38); RBC 5.11 10x6/uL (4.20-6.10); RDW 18.5 % (11.5-14.5); WBC 10.3 10x3/uL (4.8-10.8)
[2020-10-11 05:34] LABS: PLATELET COUNT 555 10x3/uL (130-400)
[2020-10-11 05:52] LABS: ALBUMIN 3.8 g/dL (3.4-5.0); ALKALINE PHOSPHATASE 111 U/L (30-120); ALT (SGPT) 20 U/L (10-68); BILIRUBIN - TOTAL 0.33 mg/dL (0.2-1.3); CALC OSMOLALITY 269 mosm/kg (275-300); CALCIUM 8.7 mg/dL (8.5-10.1); CARBON DIOXIDE 25.1 mmol/L (21.0-32.0); CHLORIDE - SERUM 101 mmol/L (98-107); MAGNESIUM - SERUM 1.8 mg/dL (1.8-2.4); POTASSIUM - SERUM 4.3 mmol/L (3.5-5.1); PROTEIN - SERUM 7.3 g/dL (6.4-8.2); SODIUM 136 mmol/L (136-145); UREA NITROGEN 8 mg/dL (7-18); eGFR NON AFRICAN AMERICAN 78 mL/min (90-120)
[2020-10-11 05:59] LABS: GLUCOSE 94 mg/dL (74-106)
--- NOTE | 2020-10-11 08:17 | NUR ---
AWAKE AND ALERT. ORIENTED X3. FOUND WITH IV LYING ON FLOOR WITH CATHETER INTACT. RESITED TO RIGHT FOREARM AFTER ONE ATTEMPT WITH 20G. TOLERATED WELL. LUNGS ARE CLEAR BILATERALLY, NO COUGH NOTED. SKIN IS INTACT WITHOUT REDNESS. DENIES NEEDS.
[2020-10-11 09:30] VITALS: BP 132/85
--- NOTE | 2020-10-11 10:00 | NUR ---
RESTING QUIETLY IN BED. DENIES NEEDS.
--- NOTE | 2020-10-11 12:30 | NUR ---
ATE MOST OF CL LUNCH. ABLE TO KEEP IT DOWN SO FAR. WILL CONTINUE TO MONITOR.
[2020-10-11 13:05] VITALS: BP 137/79
--- NOTE | 2020-10-11 17:00 | NUR ---
FSBS 82. NO COVERAGE REQUIRED.
[2020-10-11 17:02] VITALS: BP 104/61
--- NOTE | 2020-10-11 18:17 | NUR ---
WORKING ON CL SUPPER TRAY. DENIES NEEDS. NO CHANGES NOTED.
[2020-10-11 20:00] VITALS: BP 152/80
--- NOTE | 2020-10-11 21:00 | NUR ---
WATHCING TV WITH NO COMPLAITNS VOICED. RESP EVEN AND UNLABORED. NO DISTRESS NOTED. IV TO RFA INTACT WITHOUT REDNESS OR EDEMA NOTED. CL IN REACH
[2020-10-12] VITALS: BP 145/73
--- NOTE | 2020-10-12 03:45 | NUR ---
I have reviewed this patient and I concur with the Shift Assessment completed by the Licensed Practical Nurse today this shift.
[2020-10-12 04:00] VITALS: BP 152/80
[2020-10-12 06:41] LABS: ALBUMIN 3.3 g/dL (3.4-5.0); ALKALINE PHOSPHATASE 92 U/L (30-120); ALT (SGPT) 18 U/L (10-68); BILIRUBIN - TOTAL 0.28 mg/dL (0.2-1.3); CALC OSMOLALITY 266 mosm/kg (275-300); CALCIUM 8.4 mg/dL (8.5-10.1); CARBON DIOXIDE 29.3 mmol/L (21.0-32.0); CHLORIDE - SERUM 101 mmol/L (98-107); CREATININE - SERUM 0.9 mg/dL (0.6-1.3); GLUCOSE 83 mg/dL (74-106); MAGNESIUM - SERUM 1.8 mg/dL (1.8-2.4); PROTEIN - SERUM 6.8 g/dL (6.4-8.2); SODIUM 135 mmol/L (136-145); UREA NITROGEN 7 mg/dL (7-18); eGFR NON AFRICAN AMERICAN 89 mL/min (90-120)
[2020-10-12 06:44] LABS: POTASSIUM - SERUM 3.6 mmol/L (3.5-5.1)
[2020-10-12 06:45] LABS: BASOPHILS 0.9 % (0-2); EOSINOPHILS 2.8 % (0-7); HEMATOCRIT 32.7 % (42.0-54.0); HEMOGLOBIN 10.4 g/dL (13.5-17.5); IMMATURE GRANULOCYTES 0.2 % (0-5); LYMPHOCYTE ABS# 2.83 10x3/uL (1.32-3.57); LYMPHOCYTES 34.7 % (15-50); MCHC 31.8 g/dL (31.0-37.0); MCV 69.3 fL (80.0-100.0); MEAN PLATELET VOLUME 8.9 fL (7.4-10.4); MONOCYTES 9.7 % (2-11); NEUTROPHIL ABS# 4.21 10x3/uL (1.78-5.38); NEUTROPHILS 51.7 % (40-80); PLATELET COUNT 488 10x3/uL (130-400); RBC 4.72 10x6/uL (4.20-6.10); RDW 18.5 % (11.5-14.5); WBC 8.2 10x3/uL (4.8-10.8)
[2020-10-12 07:49] VITALS: BP 135/76
[2020-10-12 12:04] VITALS: BP 151/74
[2020-10-12 13:12] VITALS: Ht 172.7 cm; Wt 63.5 kg
--- NOTE | 2020-10-12 15:20 | MORECARE ---
CASE MANAGEMENT DISCHARGE SUMMARY PATIENT: NATHAN JAMESON UNIT: [id number] ADM DATE: 10/11/20 AGE: 70 : 50 SEX: M ROOM/BED: D.2212 AUTHOR: PRECIOUS CARRASCO PHYSICIAN: REFERRING PHYSICIAN: MIGUEL AMADOR MD DATE OF SERVICE: 10/12/20 Discharge Plan Patient Name: NATHAN JAMESON Facility: [facility]:[place] : 1950 Planned Disposition: Home or Self Care Anticipated Discharge Date: Discharge Date: Expected LOS: Initial Reviewer: [email or web address] Initial Review Date: 10/10/2020 Generated: 10/12/20 4:19 pm DCP- Discharge Planning Updated by [email or web address]: Marva Farfan on 10/10/20 2:[address] RUIZ explained, signed, given, copy placed in MR DCPIA - Discharge Planning Initial Assessment Updated by [id number]: Edda Kelly on 10/12/20 3:14 pm * Is the patient Alert and Oriented? Yes * PCP MAL * Pharmacy [facility] [address] * Preadmission Environment Home Alone * ADLs Independent * Equipment None * List name and contact numbers for known caregivers / representatives who currently or will assist patient after discharge: DEJAH ( EX-) * Verbal permission to speak to the caregivers and representatives has been obtained from the patient. N/A * Community resources currently utilized None * Additional services required to return to the preadmission environment? No * Can the patient safely return to the preadmission environment? Yes * Has this patient been hospitalized within the prior 30 days at any hospital? Yes Coverage Notice Reviewer: [email or web address] Benedicto Abrams Notice Issued Date-Time: 10/10/2020 16:49 Notice Type: Medicare Outpatient Observation Notice Notice Delivered To: Patient Relationship to Patient: Self Correctional Therapy Teacher Name: Delivery Method: HAND - Hand Delivered Ida Days: Prior Verbal Notification: Recipient Understood Notice: Yes Recipient Signature: Yes Med Rec Note Co-signed by Attending: Coverage Notice Comment: RUIZ explained, signed, given, copy placed in MR Patient Name: NATHAN JAMESON Page [phone] at 1520 All edits/amendments must be made on the electronic document DICTATION DATE: 10/12/201518 COLOR CARD MAKER: IAN 10/12/201518 RPT#: [id number] DC DATE: STATUS: ADM IN [facility] [address] [place] [address] END OF REPORT
--- NOTE | 2020-10-12 15:30 | MORECARE ---
CASE MANAGEMENT DISCHARGE SUMMARY PATIENT: NATHAN JAMESON UNIT: [id number] ADM DATE: 10/11/20 AGE: 70 : 50 SEX: M ROOM/BED: D.2212 AUTHOR: DANILODOC PHYSICIAN: REFERRING PHYSICIAN: MIGUEL AMADOR MD DATE OF SERVICE: 10/12/20 Discharge Plan Patient Name: NATHAN JAMESON Facility: [facility]:[place] : 1950 Planned Disposition: Home or Self Care Anticipated Discharge Date: Discharge Date: Expected LOS: Initial Reviewer: [email or web address] Initial Review Date: 10/10/2020 Generated: 10/12/20 4:29 pm Comments DCP- Discharge Planning Updated by [id number]: Edda Kelly on 10/12/20 1:[address] Patient Name: NATHAN JAMESON Admission Status: ER Accout number: [id number] Admission Date: 10-11-2020 : 1950 Admission Diagnosis: Attending: MIGUEL AMADOR Current LOS: 1 Anticipated DC Date: Planned Disposition: Home or Self Care Primary Insurance: MEDICARE A & B Discharge Planning Comments: CM met with patient to complete initial dc planning assessment. CM educated patient on the CM role and verbal consent given by patient to complete assessment. Patient lives at home by himself where he states he is independent with his care. At discharge patient plans to return home and feels this is a safe discharge. CM discussed availability of home health, rehab services, and medical equipment. At first he was not open to HH because he just wants to get better before being discharged this time, but then said he would like to think about it and may be agreeable to it . He was very anxious when talking to him. He said that when he was discharged last time he wasn't ready to go but was discharged anyway. 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 He does not remember that . He ambulates without any issues and does not need any DME. Patient denied known discharge needs at this time. CM will continue to follow and will assist as needed with dc plans/needs Parts Technician: Edda Kelly DCP- Discharge Planning Updated by [email or web address]: Marva Adolph on 10/10/20 2:[address] SARA explained, signed, given, copy placed in MR DCPIA - Discharge Planning Initial Assessment Updated by [id number]: Edda Kelly on 10/12/20 3:14 pm * Is the patient Alert and Oriented? Yes * PCP MAL * Pharmacy [facility] [address] * Preadmission Environment Home Alone * ADLs Independent * Equipment None * List name and contact numbers for known caregivers / representatives who currently or will assist patient after discharge: DEJAH ( EX-) * Verbal permission to speak to the caregivers and representatives has been obtained from the patient. N/A * Community resources currently utilized None * Additional services required to return to the preadmission environment? No * Can the patient safely return to the preadmission environment? Yes * Has this patient been hospitalized within the prior 30 days at any hospital? Yes Coverage Notice Reviewer: [email or web address] Benedicto Abrams Notice Issued Date-Time: 10/10/2020 16:49 Notice Type: Medicare Outpatient Observation Notice Notice Delivered To: Patient Relationship to Patient: Self Ham Passer Name: Delivery Method: HAND - Hand Delivered Ida Days: Prior Verbal Notification: Recipient Understood Notice: Yes Recipient Signature: Yes Med Rec Note Co-signed by Attending: Coverage Notice Comment: SARA explained, signed, given, copy placed in MR Last DP export: 10/12/20 1:20 p Patient Name: NATHAN JAMESON Page [phone] at 1530 All edits/amendments must be made on the electronic document DICTATION DATE: 10/12/20 1530 VOLLEYBALL COMMENTATOR: IAN 10/12/20 1530 RPT#: [id number] DC DATE: STATUS: ADM IN [facility] [address] [place] [address] END OF REPORT
[2020-10-12 16:51] VITALS: BP 177/59
[2020-10-12 21:33] VITALS: BP 172/84
[2020-10-13 00:39] VITALS: BP 134/80
[2020-10-13 05:15] VITALS: BP 142/91
--- NOTE | 2020-10-13 05:29 | NUR ---
I have reviewed this patient and I concur with the Shift Assessment completed by the Licensed Practical Nurse today this shift.
[2020-10-13 06:16] LABS: ALBUMIN 3.2 g/dL (3.4-5.0); ALKALINE PHOSPHATASE 93 U/L (30-120); ALT (SGPT) 17 U/L (10-68); BILIRUBIN - TOTAL 0.24 mg/dL (0.2-1.3); CALC OSMOLALITY 266 mosm/kg (275-300); CALCIUM 8.2 mg/dL (8.5-10.1); CARBON DIOXIDE 29.8 mmol/L (21.0-32.0); CHLORIDE - SERUM 100 mmol/L (98-107); CREATININE - SERUM 0.9 mg/dL (0.6-1.3); GLUCOSE 87 mg/dL (74-106); MAGNESIUM - SERUM 1.7 mg/dL (1.8-2.4); POTASSIUM - SERUM 3.4 mmol/L (3.5-5.1); PROTEIN - SERUM 6.7 g/dL (6.4-8.2); SODIUM 135 mmol/L (136-145); UREA NITROGEN 7 mg/dL (7-18); eGFR NON AFRICAN AMERICAN 89 mL/min (90-120)
[2020-10-13 06:18] LABS: BASOPHILS 0.6 % (0-2); EOSINOPHILS 2.2 % (0-7); HEMATOCRIT 32.8 % (42.0-54.0); IMMATURE GRANULOCYTES 0.2 % (0-5); LYMPHOCYTES 24.7 % (15-50); MCHC 30.5 g/dL (31.0-37.0); MCV 68.9 fL (80.0-100.0); MEAN PLATELET VOLUME 8.6 fL (7.4-10.4); MONOCYTES 9.3 % (2-11); NEUTROPHIL ABS# 5.61 10x3/uL (1.78-5.38); PLATELET COUNT 428 10x3/uL (130-400); RBC 4.76 10x6/uL (4.20-6.10); RDW 18.4 % (11.5-14.5); WBC 8.9 10x3/uL (4.8-10.8)
[2020-10-13 07:43] VITALS: BP 169/70
[2020-10-13 12:35] VITALS: BP 145/68
[2020-10-13 15:00] VITALS: BP 140/62
[2020-10-13] MEDS ORDERED: PROTONIX40 MG PO (16:27)
--- NOTE | 2020-10-13 17:15 | NUR ---
PT C/O PAIN 8/10, GENERALIZED, PROVIDED MEDS PER ORDER, TOLERATED WELL. BED LOW, CL IN REACH.
[2020-10-13 21:11] VITALS: BP 183/59
== END 2020-10-13 20:30 | disposition home or self-care (01) | DRG 74 ==
LOC: D.ER 06:22 → D.MS 10:35 → OBSVTIME 10:35 → D.MS 10-11 16:32
PROVIDERS: Family Medicine; ADMIT Family Medicine; ATTEND Family Medicine
DX: E11.43 Type 2 diabetes mellitus with diabetic autonomic (poly)neuropathy (principal); K31.84 Gastroparesis; F12.10 Cannabis abuse, uncomplicated; D50.9 Iron deficiency anemia, unspecified; K59.01 Slow transit constipation

== ENCOUNTER 2020-11-30 10:41 | Emergency (ER) | payer MEDICARE ==
[~2020-11-30] VITALS: Ht 172.7 cm; Wt 65.9 kg
[~2020-11-30 10:41] MED LIST changes: +LEVSIN/ANASP0.125 MG PO; +PROTONIX40 MG PO
[2020-11-30 10:43] VITALS: BP 137/79; Ht 172.7 cm; Wt 65.9 kg
[2020-11-30] MEDS ORDERED: LEVSIN/ANASP0.125 MG PO (10:46)
[2020-11-30 11:33] LABS: BASOPHILS 1.1 % (0-2); EOSINOPHILS 2.3 % (0-7); HEMATOCRIT 28.6 % (42.0-54.0); HEMOGLOBIN 8.8 g/dL (13.5-17.5); IMMATURE GRANULOCYTES 0.3 % (0-5); LYMPHOCYTE ABS# 1.93 10x3/uL (1.32-3.57); LYMPHOCYTES 21.8 % (15-50); MCH 20.3 pg (26.0-34.0); MCHC 30.8 g/dL (31.0-37.0); MCV 66.1 fL (80.0-100.0); MEAN PLATELET VOLUME 9.1 fL (7.4-10.4); MONOCYTES 8.6 % (2-11); NEUTROPHIL ABS# 5.83 10x3/uL (1.78-5.38); NEUTROPHILS 65.9 % (40-80); PLATELET COUNT 395 10x3/uL (130-400); RBC 4.33 10x6/uL (4.20-6.10); RDW 18.3 % (11.5-14.5); WBC 8.9 10x3/uL (4.8-10.8)
[2020-11-30 11:51] LABS: CALC OSMOLALITY 260 mosm/kg (275-300); CALCIUM 8.3 mg/dL (8.5-10.1); CARBON DIOXIDE 24.7 mmol/L (21.0-32.0); CHLORIDE - SERUM 97 mmol/L (98-107); CREATININE - SERUM 0.9 mg/dL (0.6-1.3); GLUCOSE 108 mg/dL (74-106); POTASSIUM - SERUM 4.6 mmol/L (3.5-5.1); SODIUM 130 mmol/L (136-145); UREA NITROGEN 10 mg/dL (7-18); eGFR NON AFRICAN AMERICAN 89 mL/min (90-120)
[2020-11-30 11:57] LABS: ALBUMIN 3.6 g/dL (3.4-5.0); ALKALINE PHOSPHATASE 85 U/L (30-120); ALT (SGPT) 20 U/L (10-68); AMYLASE - SERUM 63 U/L (25-115); BILIRUBIN - TOTAL 0.31 mg/dL (0.2-1.3); LIPASE 126 U/L (73-393); PROTEIN - SERUM 6.9 g/dL (6.4-8.2); TROPONIN-I < 0.017 ng/mL (0.000-0.060)
== END 2020-11-30 12:38 | disposition home or self-care (01) ==
LOC: D.ER 10:41
PROVIDERS: Emergency Medicine
DX: K59.00 Constipation, unspecified (principal); R11.2 Nausea with vomiting, unspecified; E11.9 Type 2 diabetes mellitus without complications

== ENCOUNTER 2020-12-24 11:15 | Emergency (ER) | payer MEDICARE ==
[~2020-12-24] VITALS: Ht 172.7 cm; Wt 65.9 kg
[2020-12-24 11:20] VITALS: Ht 172.7 cm; Wt 65.9 kg
[2020-12-24] MEDS ORDERED: MIRALAX17 GM PO (11:44)
[2020-12-24] MEDS ORDERED: ZOFRAN ODT4 MG/UDTAB PO (12:03)
[2020-12-24] MEDS ORDERED: CARAFATE1 G PO (12:03)
[2020-12-24 12:51] LABS: BASOPHILS 0.7 % (0-2); EOSINOPHILS 0.3 % (0-7); HEMATOCRIT 31.7 % (42.0-54.0); HEMOGLOBIN 9.7 g/dL (13.5-17.5); LYMPHOCYTES 14.1 % (15-50); MCHC 30.7 g/dL (31.0-37.0); MCV 63.6 fL (80.0-100.0); MONOCYTES 4.9 % (2-11); PLATELET COUNT 453 10x3/uL (130-400); RBC 4.98 10x6/uL (4.20-6.10); WBC 12.7 10x3/uL (4.8-10.8)
[2020-12-24 12:56] LABS: CALC OSMOLALITY 270 mosm/kg (275-300); CARBON DIOXIDE 27.1 mmol/L (21.0-32.0); CHLORIDE - SERUM 100 mmol/L (98-107); CREATININE - SERUM 1.1 mg/dL (0.6-1.3); GLUCOSE 125 mg/dL (74-106); POTASSIUM - SERUM 4.7 mmol/L (3.5-5.1); SODIUM 135 mmol/L (136-145); UREA NITROGEN 12 mg/dL (7-18); eGFR NON AFRICAN AMERICAN 70 mL/min (90-120)
[2020-12-24 13:04] LABS: ALBUMIN 4.1 g/dL (3.4-5.0); ALKALINE PHOSPHATASE 79 U/L (30-120); ALT (SGPT) 21 U/L (10-68); AMYLASE - SERUM 71 U/L (25-115); LIPASE 152 U/L (73-393); PROTEIN - SERUM 7.8 g/dL (6.4-8.2); TROPONIN-I < 0.017 ng/mL (0.000-0.060)
[2020-12-24 13:07] LABS: MCH 19.5 pg (26.0-34.0)
[2020-12-24 14:55] VITALS: BP 136/79
== END 2020-12-24 14:52 | disposition home or self-care (01) ==
LOC: D.ER 11:15
PROVIDERS: Emergency Medicine
DX: K59.01 Slow transit constipation (principal); R10.9 Unspecified abdominal pain; E11.9 Type 2 diabetes mellitus without complications